=== PATIENT | male | born 1940 | race Caucasian/White ===

== ENCOUNTER → 2019-02-06 | Outpatient (CLI) | payer OTHER | LOC: M.ULTRA 09-16 09:16 → M.RAD 16:35 | DX: M25.562 Pain in left knee (principal); I70.202 Unspecified atherosclerosis of native arteries of extremities, left leg ==

== ENCOUNTER → 2019-05-21 | Outpatient (CLI) | payer OTHER ==
[2019-05-21 17:36] LABS: ABSOLUTE BASOPHILS 0.1 thou/uL (0.0-0.2); ABSOLUTE EOSINOPHILS 0.2 thou/uL (0.0-0.7); ABSOLUTE LYMPHOCYTES 1.6 thou/uL (0.8-5.3); ABSOLUTE MONOCYTES 0.5 thou/uL (0.0-1.2); ABSOLUTE NEUTROPHILS 5.5 thou/uL (1.6-8.1); BASOPHILS 1.1 %; EOSINOPHILS 2.5 %; HEMOGLOBIN 11.8 gm/dL (14.0-18.0); LYMPHOCYTES 19.9 %; MCH 29.2 pg (26.0-34.0); MCHC 33.6 g/dL (28.0-37.0); MCV 87.1 fL (80.0-100.0); MONOCYTES 6.7 %; MPV 8.7 fl. (7.2-11.1); NUCLEATED RBCS 0 /100WBC; PLATELET COUNT* 215 thou/uL (150-400); POLYS 69.8 %; RBC 4.02 mil/uL (4.50-6.00); RDW-CV 15.8 % (10.5-14.5); WBC 7.9 thou/uL (4.0-11.0)
[2019-05-21 18:10] LABS: ALBUMIN 3.9 g/dL (3.4-5.0); ALKALINE PHOSPHATASE 72 U/L (46-116); ANION GAP 7 mmol/L (7-16); BUN 26 mg/dL (7-18); CALCIUM 9.6 mg/dL (8.5-10.1); CHLORIDE 106 mmol/L (98-107); CHOLESTEROL 157 mg/dL (<200); CO2 27 mmol/L (21-32); CREATININE 0.9 mg/dL (0.6-1.3); DIRECT BILIRUBIN 0.1 mg/dL (<0.1-0.3); GLUCOSE 110 mg/dL (70-99); HDL CHOLESTEROL 65 mg/dL (>40); LDL CHOLESTEROL 71 mg/dL (<100); POTASSIUM 5.4 mmol/L (3.5-5.1); SGOT 27 U/L (15-37); SGPT 27 U/L (30-65); SODIUM 140 mmol/L (136-145); TC:HDL 2.4 Ratio (Not establshd); TOTAL BILIRUBIN 0.2 mg/dL (<0.1-1.0); TOTAL PROTEIN 7.4 g/dL (6.4-8.2); TRIGLYCERIDE 108 mg/dL (<150); VLDL 22 mg/dL (<40)
[2019-05-21 18:21] LABS: SERUM ASSESSMENT Clear
[2019-05-22 02:07] LABS: GLYCOHEMOGLOBIN (HGB A1C) 5.7 % (4.8-5.6)
== END ==
LOC: M.CT 15:30
PROVIDERS: Registered Nurse Diabetes Educator
DX: J98.4 Other disorders of lung (principal); I10 Essential (primary) hypertension; E78.2 Mixed hyperlipidemia; E11.9 Type 2 diabetes mellitus without complications; J42 Unspecified chronic bronchitis; J47.9 Bronchiectasis, uncomplicated; M40.294 Other kyphosis, thoracic region; N28.1 Cyst of kidney, acquired; N20.0 Calculus of kidney; I70.0 Atherosclerosis of aorta; K44.9 Diaphragmatic hernia without obstruction or gangrene; K57.30 Diverticulosis of large intestine without perforation or abscess without bleeding; M47.816 Spondylosis without myelopathy or radiculopathy, lumbar region; Z79.899 Other long term (current) drug therapy

== ENCOUNTER → 2019-11-13 | Outpatient (CLI) | payer MEDICARE, OTHER | LOC: M.RAD 16:07 | DX: R05 Cough (principal); R53.83 Other fatigue; I70.0 Atherosclerosis of aorta ==

== ENCOUNTER → 2019-11-19 | Outpatient (CLI) | payer MEDICARE, OTHER | LOC: M.ULTRA 09-25 13:00 | DX: E04.2 Nontoxic multinodular goiter (principal); E83.52 Hypercalcemia ==

== ENCOUNTER → 2019-11-26 | Outpatient (CLI) | payer MEDICARE, OTHER | LOC: M.RAD 10:49 | DX: K22.8 Other specified diseases of esophagus (principal); K44.9 Diaphragmatic hernia without obstruction or gangrene ==

== ENCOUNTER → 2020-10-07 | Outpatient (CLI) | payer MEDICARE | LOC: M.ULTRA 15:48 | PROVIDERS: ATTEND Registered Nurse Diabetes Educator | DX: N28.1 Cyst of kidney, acquired (principal) ==